=== PATIENT | female | born 1975 | race Caucasian/White ===

== ENCOUNTER → 2018-02-27 | Outpatient (REF) | payer BC ==
[2018-02-27 13:15] LABS: HEMATOCRIT 40.1 % (36.0-47.0); HEMOGLOBIN 13.5 g/dl (12.0-15.5); MEAN CORPUSCULAR HEMOGLOBIN 30.5 pg (27.0-33.0); MEAN CORPUSCULAR HGB CONC 33.7 g/dl (32.0-36.5); MEAN CORPUSCULAR VOLUME 90.5 fl (80.0-96.0); PLATELET COUNT, AUTOMATED 279 10^3/uL (150-450); RED BLOOD COUNT 4.43 10^6/uL (4.00-5.40); RED CELL DISTRIBUTION WIDTH 12.6 % (11.5-14.5); WHITE BLOOD COUNT 5.2 10^3/uL (4.0-10.0)
[2018-02-27 14:46] LABS: ALBUMIN/GLOBULIN RATIO 1.14 (1.00-1.93); ALKALINE PHOSPHATASE 35 U/L (45-117); ALT/SGPT 15 U/L (12-78); ANION GAP 8 MEQ/L (8-16); AST/SGOT 10 U/L (7-37); BILIRUBIN,TOTAL 0.6 MG/DL (0.2-1.0); BLOOD UREA NITROGEN 17 MG/DL (7-18); CALCIUM LEVEL 8.9 MG/DL (8.5-10.1); CARBON DIOXIDE LEVEL 22 MEQ/L (21-32); CHLORIDE LEVEL 110 MEQ/L (98-107); CHOLESTEROL LEVEL 302 MG/DL (<200); CHOLESTEROL RISK RATIO 4.253 (<5); CREATININE FOR GFR 0.69 MG/DL (0.55-1.30); FREE T4 0.97 NG/DL (0.76-1.46); GLOMERULAR FILTRATION RATE > 60.0 (>58); GLUCOSE, FASTING 67 MG/DL (70-100); HDL CHOLESTEROL 71 MG/DL (>40); NON-HDL-C 231 MG/DL; POTASSIUM SERUM 4.4 MEQ/L (3.5-5.1); SODIUM LEVEL 140 MEQ/L (136-145); TOTAL PROTEIN 7.5 GM/DL (6.4-8.2); TRIGLYCERIDES LEVEL 100 MG/DL (<150)
== END ==
LOC: M LAB REF 12:55
DX: Z01.419 Encounter for gynecological examination (general) (routine) without abnormal findings (principal)
CPT/HCPCS: 84443

== ENCOUNTER → 2018-07-18 | Outpatient (REF) | payer BC ==
[2018-07-18 16:56] LABS: BASO # 0.1 10^3/uL (0.0-0.2); BASO % 0.9 % (0.0-1.0); EOS # 0.2 10^3/uL (0.0-0.50); EOS % 3.1 % (0.0-3.0); HEMATOCRIT 45.3 % (36.0-47.0); HEMOGLOBIN 14.7 g/dl (12.0-15.5); IMMATURE GRANULOCYTE % 0.5 % (0-3.0); LYMPH # 1.4 10^3/uL (1.5-4.5); LYMPH % 24.6 % (24.0-44.0); MEAN CORPUSCULAR HEMOGLOBIN 30.4 pg (27.0-33.0); MEAN CORPUSCULAR HGB CONC 32.5 g/dl (32.0-36.5); MEAN CORPUSCULAR VOLUME 93.6 fl (80.0-96.0); MONO # 0.3 10^3/uL (0.0-0.8); MONO % 5.1 % (0.0-5.0); NEUTROPHILS # 3.8 10^3/uL (1.8-7.7); NEUTROPHILS % 65.8 % (36.0-66.0); PLATELET COUNT, AUTOMATED 299 10^3/uL (150-450); RED BLOOD COUNT 4.84 10^6/uL (4.00-5.40); RED CELL DISTRIBUTION WIDTH 12.5 % (11.5-14.5); WHITE BLOOD COUNT 5.7 10^3/uL (4.0-10.0)
[2018-07-18 17:54] LABS: FREE T4 1.03 NG/DL (0.76-1.46)
[2018-07-21 00:07] LABS: EBV VIRAL CAPSID AG IgM <36.0 U/mL (0.0-35.9); Lyme Disease IgG/IgM Antibodie <0.91 ISR (0.00-0.90); Lyme Disease IgM Ab Quantitati <0.80 index (0.00-0.79)
== END ==
LOC: M LAB REF 16:27
DX: R53.83 Other fatigue (principal)
CPT/HCPCS: 84443

== ENCOUNTER → 2019-02-01 | Outpatient (REF) | payer BC ==
[2019-02-01 19:58] LABS: ALBUMIN 3.7 GM/DL (3.2-5.2); ALT/SGPT 15 U/L (12-78); BILIRUBIN,TOTAL 0.4 MG/DL (0.2-1.0); BLOOD UREA NITROGEN 12 MG/DL (7-18); CARBON DIOXIDE LEVEL 24 MEQ/L (21-32); CHLORIDE LEVEL 108 MEQ/L (98-107); FREE T4 1.21 NG/DL (0.76-1.46); GLOMERULAR FILTRATION RATE > 60.0 (>58); GLUCOSE, FASTING 100 MG/DL (70-100); POTASSIUM SERUM 4.2 MEQ/L (3.5-5.1); SODIUM LEVEL 139 MEQ/L (136-145); TOTAL PROTEIN 6.8 GM/DL (6.4-8.2)
[2019-02-01 20:06] LABS: MONO SCRN NEGATIVE (NEGATIVE)
[2019-02-01 20:08] LABS: BASO # 0.1 10^3/uL (0.0-0.2); BASO % 0.8 % (0.0-1.0); EOS # 0.2 10^3/uL (0.0-0.50); EOS % 2.3 % (0.0-3.0); HEMATOCRIT 39.7 % (36.0-47.0); HEMOGLOBIN 13.4 g/dl (12.0-15.5); LYMPH # 2.3 10^3/uL (1.5-4.5); LYMPH % 30.9 % (24.0-44.0); MEAN CORPUSCULAR HEMOGLOBIN 30.4 pg (27.0-33.0); MEAN CORPUSCULAR HGB CONC 33.8 g/dl (32.0-36.5); MONO # 0.5 10^3/uL (0.0-0.8); MONO % 6.6 % (0.0-5.0); NEUTROPHILS # 4.3 10^3/uL (1.8-7.7); NEUTROPHILS % 58.9 % (36.0-66.0); PLATELET COUNT, AUTOMATED 294 10^3/uL (150-450); RED BLOOD COUNT 4.41 10^6/uL (4.00-5.40); WHITE BLOOD COUNT 7.3 10^3/uL (4.0-10.0)
[2019-02-04 00:08] LABS: EBV VIRAL CAPSID AG IgM <36.0 U/mL (0.0-35.9)
== END ==
LOC: M LABDRWAD 19:07
PROVIDERS: ATTEND Physician Assistant
DX: R53.83 Other fatigue (principal)

== ENCOUNTER → 2019-04-27 | Outpatient (REF) | payer BC ==
[2019-04-27 17:30] LABS: HIV 1&2 SCREEN CENTAUR NEGATIVE (NEGATIVE)
[2019-05-01 00:06] LABS: HSV IgM TYPES 1&2 1.88 Ratio (0.00-0.90); HSV TYPE I IgG SPECIFIC <0.91 index (0.00-0.90); HSV TYPE II IgG SPECIFIC <0.91 index (0.00-0.90)
== END ==
LOC: M LAB REF 15:55
PROVIDERS: ATTEND Obstetrics & Gynecology
DX: Z01.419 Encounter for gynecological examination (general) (routine) without abnormal findings (principal); Z11.3 Encounter for screening for infections with a predominantly sexual mode of transmission

== ENCOUNTER → 2019-07-04 | Outpatient (REF) | payer BC ==
[2019-07-04 17:23] LABS: APPEARANCE, URINE CLEAR (CLEAR); BACTERIA, URINE AUTO 1+ (NEGATIVE); BILIRUBIN, URINE AUTO NEGATIVE (NEGATIVE); BLOOD, URINE BLOOD 1+ (NEGATIVE); COLOR, URINE YELLOW (YELLOW); GLUCOSE, URINE (UA) AUTO NEGATIVE (NEGATIVE); KETONE, URINE AUTO NEGATIVE (NEGATIVE); LEUKOCYTE ESTERASE, URINE AUTO 3+ (NEGATIVE); NITRITE, URINE AUTO NEGATIVE (NEGATIVE); PROTEIN, URINE AUTO NEGATIVE (NEGATIVE); RBC, URINE AUTO 0 /HPF (0-3); SPECIFIC GRAVITY URINE AUTO 1.008 (1.002-1.035); SQUAMOUS EPITHELIAL CELL UR AU 0 /HPF (0-6); UROBILINOGEN, URINE AUTO 0.2 mg/dL (0.0-2.0); WBC, URINE AUTO 5 /HPF (0-3)
== END ==
LOC: M SFHCSACK 16:33
PROVIDERS: ATTEND Physician Assistant
DX: R30.0 Dysuria (principal)

== ENCOUNTER → 2019-09-01 | Outpatient (CLI) | payer BC ==
[2019-09-01 17:32] LABS: BASO # 0.1 10^3/uL (0.0-0.2); BASO % 1.3 % (0.0-1.0); EOS # 0.2 10^3/uL (0.0-0.5); EOS % 4.3 % (0.0-3.0); HEMATOCRIT 39.6 % (36.0-47.0); HEMOGLOBIN 13.1 g/dl (12.0-15.5); LYMPH # 1.7 10^3/uL (1.5-5.0); LYMPH % 30.7 % (24.0-44.0); MEAN CORPUSCULAR HEMOGLOBIN 30.3 pg (27.0-33.0); MEAN CORPUSCULAR HGB CONC 33.1 g/dl (32.0-36.5); MEAN CORPUSCULAR VOLUME 91.7 fl (80.0-96.0); MONO # 0.4 10^3/uL (0.0-0.8); MONO % 6.5 % (0.0-5.0); NEUTROPHILS # 3.1 10^3/uL (1.5-8.5); NEUTROPHILS % 57.2 % (36.0-66.0); PLATELET COUNT, AUTOMATED 295 10^3/uL (150-450); RED BLOOD COUNT 4.32 10^6/uL (4.00-5.40); WHITE BLOOD COUNT 5.4 10^3/uL (4.0-10.0)
[2019-09-01 17:36] LABS: APPEARANCE, URINE CLEAR (CLEAR); BACTERIA, URINE AUTO NEGATIVE (NEGATIVE); BILIRUBIN, URINE AUTO NEGATIVE (NEGATIVE); BLOOD, URINE BLOOD 1+ (NEGATIVE); COLOR, URINE STRAW (YELLOW); GLUCOSE, URINE (UA) AUTO NEGATIVE (NEGATIVE); KETONE, URINE AUTO NEGATIVE (NEGATIVE); LEUKOCYTE ESTERASE, URINE AUTO NEGATIVE (NEGATIVE); NITRITE, URINE AUTO NEGATIVE (NEGATIVE); PROTEIN, URINE AUTO NEGATIVE (NEGATIVE); RBC, URINE AUTO 2 /HPF (0-3); SPECIFIC GRAVITY URINE AUTO 1.006 (1.002-1.035); SQUAMOUS EPITHELIAL CELL UR AU 1 /HPF (0-6); UROBILINOGEN, URINE AUTO 0.2 mg/dL (0.0-2.0); WBC, URINE AUTO 0 /HPF (0-3)
[2019-09-01 18:00] LABS: ALBUMIN 3.9 GM/DL (3.2-5.2); ALT/SGPT 15 U/L (12-78); BILIRUBIN,TOTAL 0.6 MG/DL (0.2-1.0); BLOOD UREA NITROGEN 14 MG/DL (7-18); CALCIUM LEVEL 9.1 MG/DL (8.5-10.1); CARBON DIOXIDE LEVEL 26 MEQ/L (21-32); CHLORIDE LEVEL 109 MEQ/L (98-107); CHOLESTEROL LEVEL 287 MG/DL (<200); CHOLESTEROL RISK RATIO 3.587 (<5); FREE T4 1.05 NG/DL (0.76-1.46); GLOMERULAR FILTRATION RATE > 60.0 (>58); GLUCOSE, FASTING 83 MG/DL (70-100); HDL CHOLESTEROL 80 MG/DL (>40); LDL CHOLESTEROL 192 MG/DL (<100); NON-HDL-C 207 MG/DL; POTASSIUM SERUM 4.1 MEQ/L (3.5-5.1); SODIUM LEVEL 141 MEQ/L (136-145); TOTAL PROTEIN 7.6 GM/DL (6.4-8.2); TRIGLYCERIDES LEVEL 74 MG/DL (<150)
[2019-09-03 10:52] LABS: TOTAL 25(OH) VITAMIN D 26.9 NG/ML (30.0-100.0)
== END ==
LOC: M LABDRWAD 12:47
PROVIDERS: ATTEND Physician Assistant
DX: Z13.21 Encounter for screening for nutritional disorder (principal); Z13.220 Encounter for screening for lipoid disorders; Z13.29 Encounter for screening for other suspected endocrine disorder; J30.2 Other seasonal allergic rhinitis; R30.0 Dysuria

== ENCOUNTER → 2020-04-04 | Outpatient (REF) | payer BC ==
[2020-04-04 18:22] LABS: BASO % 0.5 % (0.0-1.0); EOS # 0.1 10^3/uL (0.0-0.5); EOS % 2.3 % (0.0-3.0); HEMATOCRIT 42.2 % (36.0-47.0); HEMOGLOBIN 13.7 g/dl (12.0-15.5); LYMPH # 1.8 10^3/uL (1.5-5.0); LYMPH % 32.6 % (24.0-44.0); MEAN CORPUSCULAR HEMOGLOBIN 30.4 pg (27.0-33.0); MEAN CORPUSCULAR HGB CONC 32.5 g/dl (32.0-36.5); MEAN CORPUSCULAR VOLUME 93.6 fl (80.0-96.0); MONO # 0.4 10^3/uL (0.0-0.8); MONO % 6.8 % (0.0-5.0); NEUTROPHILS # 3.2 10^3/uL (1.5-8.5); NEUTROPHILS % 57.6 % (36.0-66.0); PLATELET COUNT, AUTOMATED 300 10^3/uL (150-450); RED BLOOD COUNT 4.51 10^6/uL (4.00-5.40); WHITE BLOOD COUNT 5.6 10^3/uL (4.0-10.0)
[2020-04-04 18:32] LABS: ALT/SGPT 19 U/L (12-78); BILIRUBIN,TOTAL 0.5 MG/DL (0.2-1.0); BLOOD UREA NITROGEN 15 MG/DL (7-18); CARBON DIOXIDE LEVEL 23 MEQ/L (21-32); CHLORIDE LEVEL 108 MEQ/L (98-107); CHOLESTEROL LEVEL 287 MG/DL (<200); CHOLESTEROL RISK RATIO 4.948 (<5); CREATININE FOR GFR 0.72 MG/DL (0.55-1.30); GLOMERULAR FILTRATION RATE > 60.0 (>58); GLUCOSE, FASTING 83 MG/DL (70-100); HDL CHOLESTEROL 58 MG/DL (>40); LDL CHOLESTEROL 211 MG/DL (<100); NON-HDL-C 229 MG/DL; POTASSIUM SERUM 4.3 MEQ/L (3.5-5.1); SODIUM LEVEL 137 MEQ/L (136-145); TOTAL PROTEIN 7.3 GM/DL (6.4-8.2); TRIGLYCERIDES LEVEL 88 MG/DL (<150)
[2020-04-04 18:34] LABS: TOTAL 25(OH) VITAMIN D 29.2 NG/ML (30.0-100.0)
== END ==
LOC: M SFHCADAM 11:50
PROVIDERS: ATTEND Family Medicine
DX: K59.00 Constipation, unspecified (principal); E78.2 Mixed hyperlipidemia; E55.9 Vitamin D deficiency, unspecified

== ENCOUNTER → 2020-08-25 | Outpatient (REF) | payer BC | LOC: M SFHCADAM 15:24 | PROVIDERS: ATTEND Family Medicine | DX: M53.3 Sacrococcygeal disorders, not elsewhere classified (principal) ==

== ENCOUNTER → 2020-08-25 | Outpatient (CLI) | payer BC ==
--- NOTE | 2020-08-25 15:52 | REP ---
INDICATION: SACROILIAC DYSFUNCTION SACROILIAC DYSFUNCTION. COMPARISON: None. FINDINGS: No acute fracture or destructive osseous lesion. IMPRESSION: Within normal limits <Electronically signed by Gaurang Cullen > 08/25/20 [id number]
--- NOTE | 2020-08-25 15:54 | REP ---
INDICATION: SACROILIAC DYSFUNCTION TECHNIQUE: Multiple views of the lumbosacral spine. FINDINGS: Multiple views of the lumbosacral spine show no acute fracture, dislocation, or subluxation. The intervertebral disc spaces are symmetric and well maintained. There is no spondylolysis or spondylolisthesis. The pedicles are intact bilaterally and there is no destructive osseous lesion. Vertebral body height and alignment is within normal limits. IMPRESSION: Essentially unremarkable lumbosacral spine series. <Electronically signed by Gaurang Cullen > 08/25/20 [id number]
== END ==
LOC: M ADAMS 15:29
PROVIDERS: ATTEND Family Medicine
DX: M53.3 Sacrococcygeal disorders, not elsewhere classified (principal)

== ENCOUNTER → 2020-09-04 | Outpatient (CLI) | payer BC ==
--- NOTE | 2020-09-04 20:10 | REP ---
INDICATION: N92.1 EXCESSIVE AND FREQUENT MENSES COMPARISON: None. TECHNIQUE: Transabdominal pelvic ultrasound followed by transvaginal examination for better evaluation of the endometrium and adnexa with color Doppler evaluation of the ovaries. FINDINGS: Bladder is unremarkable and measures 9.5 x 8.4 x 5.2 cm. Normal anteverted uterus measures 7.4 x 3.6 x 4.8 cm. The endometrial complex measures 12 mm thickness. Few small nabothian cysts are appreciated in the lower uterine segment. Bilateral ovaries are normal in vascularity without evidence for torsion. Right ovary measures 0.4 x 2.5 x 2.7 cm and includes 3.8 cm simple cyst; R I = 0.55. Left ovary measures 1.8 x 0.9 x 2.1 cm with a 1.7 x 0.8 x 0.7 cm simple paraovarian cyst; R I = 0.60. No pelvic fluid or adnexal mass lesion IMPRESSION: 1. Few small nabothian cysts and mildly thickened endometrial complex without further uterine abnormalities noted. 2. Ovaries with bilateral cysts as described above. No torsion. Consider re-evaluation in 4-6 weeks if patient remains symptomatic. <Electronically signed by Pawel Palafox > 09/04/202006
== END ==
LOC: M WHC 15:57
PROVIDERS: ATTEND Obstetrics & Gynecology
DX: N92.1 Excessive and frequent menstruation with irregular cycle (principal); N88.8 Other specified noninflammatory disorders of cervix uteri; N83.201 Unspecified ovarian cyst, right side; N83.202 Unspecified ovarian cyst, left side

== ENCOUNTER → 2020-12-07 | Outpatient (CLI) | payer BC | LOC: M LABSMTC 10:27 | PROVIDERS: ATTEND Anesthesiology | DX: Z01.812 Encounter for preprocedural laboratory examination (principal); Z20.822 Contact with and (suspected) exposure to COVID-19 ==

== ENCOUNTER 2020-12-12 07:03 | Day surgery (SDC) | payer BC ==
[~2020-12-12] VITALS: Ht 162.6 cm; Wt 58.5 kg
[~2020-12-12 07:03] MED LIST: LR 1,000 ML IV ONE; LR 1,000 ML IV SCH
--- OUTSIDE RECORDS SUMMARY | 2020-12-12 07:08 | CCD ---
Author Author [employer] [facility] Organization [facility] [facility] [facility] Address Unknown Phone Unavailable Care Team Providers Care Bi Data Modeler Name Role Phone Keven Govea Unavailable PROBLEMS Type Condition ICD9-CM Code BNN18-RG Code Onset Dates Condition S tatus SNOMED Code Notes Problem Familial hyperlipidemia, high LDL E78.49 Active 93977653 Problem Chronic constipation K59.09 Active 273793981 Problem Seasonal allergies J30.2 Active 369327960 Problem Constipation, unspecified constipation type K59.00 Active 88108079 Problem Vitamin D deficiency E55.9 Active 11245771 ALLERGIES Allergen (clinical drug ingredient) Drug/Non Drug Allergy do cumented on EMR Reaction Allergy Type Onset Date Status Seasonale Sneezing, congestion Drug Allergy Ac tive Sulfa (for allergy use only) Rash Drug Allergy Active ENCOUNTERS from 1975 to 2020-09-15 Encounter Location Date Provider Diagnosis [facility] [address] [place] [address] Sep, Johnie Govea IMMUNIZATIONS No Information SOCIAL HISTORY Tobacco Use: Social History Observation Description Date Details (start date - stop date) Never Smoker Sex Assigned At : Social History Observation Description Sex Assigned At Unknown Language: Question Answer Notes Languages spoken: Swedish Judaism: Question Answer Notes Judaism 08 Mormon Sexual Hx: Question Answer Notes Had sex in the last 12 months (vaginal, oral, or anal)? No LMP: 06/2019 Have you ever had an STD? Yes Herpes? Yes Alcohol Screening: Question Answer Notes Did you have a drink containing alcohol in the past year? Ye s Points 2 Interpretation Negative How often did you have six or more drinks on one occas ion in the past year? Never (0 points) How many drinks did you have on a typica l day when you were drinking in the past year? 1 or 2 (0 points) How often did you have a drink containing alcohol in t he past year? Two to four times a month (2 points) Tobacco Use: Question Answer Notes Are you a: never smoker REASON FOR REFERRAL No Information VITAL SIGNS No information MEDICATIONS Medication SIG (Take, Route, Frequency, Duration) Start Date En d Date Status MiraLax 17 GM 1 packet mixed with 8 ounces of fluid Orally Once a day for 30 day(s) Active Colace 100 MG 1 capsule as needed Orally Once a day for 30 day (s) Sep, Not-Taking Flonase Allergy Relief 50 MCG/ACT 1 spray in each nost ril Nasally Once a day for 30 day(s) Jun, Active PROCEDURES No Information RESULTS No Results REASON FOR VISIT call back MEDICAL (GENERAL) HISTORY Type Description Date Medical History Seasonal Allergies Medical History hyperlipidemia LDL> 200 Medical History mild Vit D deficiency Surgical History No Surgical history information Goals Section No Information Health Concerns No Information MEDICAL EQUIPMENT No Information MENTAL STATUS No Information FUNCTIONAL STATUS No Information ASSESSMENTS No Information PLAN OF TREATMENT Next Appt Details Provider Name:Chica Acosta, 2021-05-25 10:00:00 AM, [address] [place], [place], [id number], Insurance Providers Payer Name Payer Address Payer Phone Insured Name Patient Relati onship to Insured Coverage Start Date Coverage End Date [employer] BC[employer] PPO [id number] [address] ENZO LOMBARDO self
--- OUTSIDE RECORDS SUMMARY | 2020-12-12 07:09 | CCD ---
Author Author [facility] Organization [facility] Address Unknown Phone Unavailable Care Team Providers Care Superior Court Judge Name Role Phone Dodard, Eloy DO Unavailable Unavailable Dodard, Eloy DO Unavailable Unavailable Dodard, Eloy DO Unavailable Unavailable Dodard, Eloy DO Unavailable Unavailable Dodard, Eloy DO Unavailable Unavailable Dodard, Eloy DO Unavailable Unavailable Dodard, Eloy DO Unavailable Unavailable Dodard, Eloy DO Unavailable Unavailable Dodard, Eloy DO Unavailable Unavailable Dodard, Eloy DO Unavailable Unavailable Dodard, Eloy DO Unavailable Unavailable Dodard, Eloy DO Unavailable Unavailable Dodard, Eloy DO Unavailable Unavailable Dodard, Eloy DO Unavailable Unavailable Dodard, Eloy DO Unavailable Unavailable Dodard, Eloy DO Unavailable Unavailable Dodard, Eloy DO Unavailable Unavailable Dodard, Eloy DO Unavailable Unavailable Dodard, Eloy DO Unavailable Unavailable Dodard, Eloy DO Unavailable Unavailable Dodard, Eloy DO Unavailable Unavailable Dodard, Eloy DO Unavailable Unavailable Dodard, Eloy DO Unavailable Unavailable Dodard, Eloy DO Unavailable Unavailable Dodard, Eloy DO Unavailable Unavailable Dodard, Eloy DO Unavailable Unavailable Dodard, Eloy DO Unavailable Unavailable Dodard, Eloy DO Unavailable Unavailable Dodard, Eloy DO Unavailable Unavailable Dodard, Eloy DO Unavailable Unavailable Dodard, Eloy DO Unavailable Unavailable Dodard, Eloy DO Unavailable Unavailable Dodard, Eloy DO Unavailable Unavailable Dodard, Eloy DO Unavailable Unavailable Dodard, Eloy DO Unavailable Unavailable Dodard, Eloy DO Unavailable Unavailable Dodard, Eloy DO Unavailable Unavailable Dodard, Eloy DO Unavailable Unavailable Dodard, Eloy DO Unavailable Unavailable Dodard, Eloy DO Unavailable Unavailable Dodard, Eloy DO Unavailable Unavailable Dodard, Eloy DO Unavailable Unavailable Dodard, Eloy DO Unavailable Unavailable Dodard, Eloy DO Unavailable Unavailable Re-disclosure Warning The records that you are about to access may contain information from federally-assisted alcohol or drug abuse programs. If such information is present, then the following federally mandated warning applies: This information has been disclosed to you from records protected by federal confidentiality rules (42 CFR part 2). The federal rules prohibit you from making any further disclosure of this information unless further disclosure is expressly permitted by the written consent of the person to whom it pertains or as otherwise permitted by 42 CFR part 2. A general authorization for the release of medical or other information is NOT sufficient for this purpose. The Federal rules restrict any use of the information to criminally investigate or prosecute any alcohol or drug abuse patient.The records that you are about to access may contain highly sensitive health information, the redisclosure of which is protected by Article 27-F of the [facility] Public Health law. If you continue you may have access to information: Regarding HIV / AIDS; Provided by facilities licensed or operated by the [facility] Office of Mental Health; or Provided by the [facility] Office for People With Developmental Disabilities. If such information is present, then the following [facility] mandated warning applies: This information has been disclosed to you from confidential records which are protected by state law. State law prohibits you from making any further disclosure of this information without the specific written consent of the person to whom it pertains, or as otherwise permitted by law. Any unauthorized further disclosure in violation of state law may result in a fine or fdc sentence or both. A general authorization for the release of medical or other information is NOT sufficient authorization for further disc losure. Family History Family Member Name Family Member Gender Family Member Status Date o f Status Description Data Source(s) Unknown Unknown Problem [facility] ([facility]) Encounters Encounter Providers Location Date Indications Data Source(s ) Unknown [address] [facility] [address] 09/11/2020 12:00:00 AM EST eCW1 ([facility]) [place] [address] [facility] [address] 08/21/2020 12:00:00 AM EDT eCW1 ([facility]) [place] [address] [facility] [address] 05/22/2020 12:00:00 AM EDT eCW1 ([facility]) [facility] [address] [place] [address] 04/16/2020 12:00:00 AM EDT eCW1 ([facility]) [place]patient [address] [facility] [address] 04/11/2020 12:00:00 AM EDT eCW1 ([facility]) Outpatient Referrer: Eloy Man DO 02/11/2020 10:26:00 AM EDT [facility] Outpatient Referrer: Eloy Man DO 02/11/2020 10:26:00 AM EDT [facility] Outpatient Referrer: Eloy Man DO 02/04/2020 03:24:00 PM EDT [facility] Outpatient Referrer: Eloy Man DO 01/02/2020 03:44:00 PM EST [facility] Outpatient Referrer: Eloy Man DO 01/01/2020 10:45:00 AM EST [facility] Outpatient Referrer: Eloy Man DO 01/01/2020 10:43:00 AM EST [facility] Insurance Providers Payer name Policy type / Coverage type Policy ID Covered democrat ID Covered democrat's relationship to delgado Policy Delgado Plan Information [employer]-BS PPO [id number] SP [id number] [employer]-BS PPO 306 [id number] SP [id number] [employer] B [id number] S [id number] [place] PPO 302/307 [id number] SP [id number] BCBS/[employer] Commercial [id number] Self [id number] [id number] BCBS/[employer] Commercial [id number] Self [id number] [id number] [place] PPO 302/307 [id number] SP [id number] [employer] BCBS B [id number] S [id number] [employer] BCBS B [id number] S [id number] [place] PPO 302/307 [id number] SP [id number] [employer] [place] Commercial Self Problems, Conditions, and Diagnoses Code Display Name Description Problem Type Effective Dates Data Source(s) K59.09 [id number] Chronic constipation Problem 04/11/2020 12:0 0:00 AM EDT [facility] E78.49 [id number] Familial hyperlipidemia, high LDL Problem 04/11/2020 12:00:00 AM EDT [facility]) Results ID Date Data Source [id number] 12/07/2020 10:45:00 AM EST [facility] Name Value Range Interpretation Code Description Data Irene rce(s) Supporting Document(s) SARS coronavirus 2 RNA Not Detected [facility] This lab was ordered by [facility] and reported by [facility]. ID Date Data Source [id number] 09/05/2020 12:00:00 AM EDT [facility] Cnm Patient Name: [facility]BARDO [facility] 1975[facility] [place] [address] Date of Exam: 09/05/2020#: Fax: [phone] EXAM: MAMMO SCREENING WITH CADCLINICAL INFORMATION: Screening.Based on the personal health history and familial cancer history yourpatient supplied at the time of imaging, her lifetime risk of breast cancerestimated by the Tyrer-Cuzick model is 33.7%. However, due to the unknowngene mutation status, there are limitations to the accuracy of this riskestimate. Similarly, if anything changes in the personal and/or familyhistory this percentage could increase or decrease. Currently, the[facility] and [place] [employer] Society recommendadjunctive breast MRI screening starting at age 30 for women with a> 20-25% lifetime risk of developing breast cancer.The patient has previously received genetic testing.Digital screening (2D) mammography was performed bilaterally in the CC andMLO projections. Additionally, breast tomosynthesis (3D mammography) wasperformed bilaterally in the CC and MLO projections. Today's exam wascompared to the prior exam(s).By history, the patient has no complaints of a palpable breast abnormalityor other significant breast complaints.The patient states last clinical breast exam was one year ago.The breasts are unchanged in size and shape. Once again, denseheterogeneous fibroglandular elements are seen bilaterally in a stableappearing pattern but to such a degree that the sensitivity of themammogram in detecting cancer is decreased. There are no tena-soft tissuedensities or spiculated masses. There is no internal architecturaldistortion. There are no suspicious tena-calcific clusters. Skinthickening or nipple retraction is not present. Benign calcifications areagain seen bilaterally.The Volpara volumetric breast density category is D, the breasts areextremely dense which lowers the sensitivity of mammography.IMPRESSION:BI-RADS Category 2 - Benign Finding(s). Stable ma mmogram. There is noevidence of malignant alteration of the breasts. Followup examinationrecommended in one year.This mammogram was read with the assistance of Amy DENIS, an FDAapproved computer aided detection system for mammography.Negative x-ray reports should not delay surgical consultation if a dominantor clinically suspicious mass is present.Not all breast cancers can be identified by mammography. Therefore, werecommend that you continue to perform regular breast self-examination andphysical examination and then promptly contact your physician of anyconcerns or changes.Adenosis and dense breasts may obscure an underlying neoplasm.REJI Swift/Chi you for referring ENZO LOMBARDO to our office. Electronically Signed - GLO YEH DO 09/08/20 15:11 Name Value Range Interpretation Code Description Data Irene rce(s) Supporting Document(s) ID Date Data Source [id number] 02/11/2020 12:00:00 AM EDT [facility] Patient Name: MONIE LOMBARDO [facility] Date of : 1975[place] [address] Date of Exam: 02/11/2020#: Fax: [phone] 2 7mEXAM: MRI BREASTS (BILATERAL) WITHOUT OR WITH CONTRASTHISTORY: Positive family history of breast carcinoma.COMPARISON: Breast MRI study from 09/26/2018. Comparison mammography05/31/2019.TECHNIQUE:3T MRI imaging was performed. A dedicated breast coil was utilized.Coronal STIR images including the chest wall and axilla are obtained.Axial STIR images are obtained. VISTA 3D T1 axial images are obtained.Dynamic pre and post Gadolinium injected 3D Thrive T1 fat sat images areobtained in the axial plane and high-resolution T1 eThrive sagittal 3D postGadolinium enhanced images are obtained bilaterally. Subtraction andmaximum intensity projection images are generated. Motion correctionimages are reviewed. Also acquired are pre-Gadolinium enhanced T2 weightedVISTA SENSE images. Coronal, sagittal and axial post Gadolinium 3Dmultiplanar reformatted images are also generated. The Gadolinium enhancedimaging is interpreted with the aid of MediaPassD, an FDA approved ComputerAided Detection (CAD) software program, and the examination is interpretedon a dedicated Breast MRI workstation. The Gadolinium dose is 15 ml ofintravenous ProHance.FINDINGS:There is no evidence of axillary lymphadenopathy on either side. U6waltdcal scans demonstrate two small subcentimeter cysts in the left breastcentrally. The largest of these is 9 mm in greatest diameter. Theseappear somewhat smaller but otherwise unchanged from the 2018 study. Highresolution pre and post contrast T1 and T2 weighted scans show nosuspicious morphologic abnormality in either breast. The breast parenchymapattern is one of heavy fibroglandular tissue elements bilaterally andsymmetrically correspo nding with the dense breast tissue seenmammographically. There is a mild pattern of background parenchymalenhancement. Dynamically acquired sequential post contrast images show nosuspicious focus of enhancement and/or washout in either breast suspiciousfor malignancy. Subtraction images show no additional abnormality.IMPRESSION:BI-RADS Category 2 - Benign Finding(s). Repeat screening breast MRIscanning recommended in one year.Accredited by the [place] [employer] in Breast MRI.APOLONIA Del Valle/Chi you for referring ENZO LOMBARDO to our office.Electronically Signed - CYNTHIA SCHUMACHER MD 02/13/20 9:01 Name Value Range Interpretation Code Description Data Irene rce(s) Supporting Document(s) Procedure Social History Code Duration Value Status Description Data Source(s ) Smoking 08/21/2020 12:00:00 AM EDT Never Smoker completed Never S moker [facility] Smoking 08/21/2020 12:00:00 AM EDT Never Smoker completed Never S moker [facility] ([facility]) Smoking 05/22/2020 12:00:00 AM EDT Never Smoker completed Never S moker [facility]CW[facility] ([facility]) Smoking 04/11/2020 12:00:00 AM EDT Never Smoker completed Never S moker [facility]CW[facility] ([facility]) Vital Signs ID Date Data Source UNK Name Value Range Interpretation Code Description Data Source(s) Diastolic blood pressure 60 mm[Hg] 60 mm[Hg] [facility] Systolic blood pressure 110 mm[Hg] 110 mm[Hg] e CW1 ([facility]) Body temperature 97.9 [degF] 97.9 [degF] [facility]CW[facility] ( [facility]) Respiratory rate 18 /min 18 /min eCW1 ([facility]) Heart rate 60 /min 60 /min [facility] Body mass index (BMI) [Ratio] 21.45 kg/m2 21.45 kg/m2 [facility]CW[facility] ([facility]) Body height 64 [in_i] 64 [in_i] eCW1 ([facility]) Body weight 125 [lb_av] 125 [lb_av] eCW1 ([facility]) Diastolic blood pressure 68 mm[Hg] 68 mm[Hg] [facility]CW[facility]) Systolic blood pressure 112 mm[Hg] 112 mm[Hg] e CW1 [facility]) Body mass index (BMI) [Ratio] 21.04 kg/m2 21.04 kg/m2 eCW1 ([facility]) Body height 64 [in_i] 64 [in_i] eCW1 ([facility]) Body weight 122.6 [lb_av] 122.6 [lb_av] eCW1 ([facility]) Diastolic blood pressure 66 mm[Hg] 66 mm[Hg] eCW[facility] Systolic blood pressure 110 mm[Hg] 110 mm[Hg] e CW1 [facility] Body temperature 96.6 [degF] 96.6 [degF] [facility]CW[facility] ( [facility] Respiratory rate 18 /min 18 /min eCW1 ([facility]) Heart rate 69 /min 69 /min eCW1 [facility] Body mass index (BMI) [Ratio] 21.63 kg/m2 21.63 kg/m2 [facility]CW[facility] Body height 64 [in_i] 64 [in_i] eCW1 ([facility]) Body weight 126 [lb_av] 126 [lb_av] eCW1 ([facility])
[2020-12-12 07:41] LABS: HEMATOCRIT 37.2 % (36.0-47.0); HEMOGLOBIN 11.9 g/dl (12.0-15.5); MEAN CORPUSCULAR HEMOGLOBIN 30.4 pg (27.0-33.0); MEAN CORPUSCULAR VOLUME 94.9 fl (80.0-96.0); PLATELET COUNT, AUTOMATED 257 10^3/uL (150-450); RED BLOOD COUNT 3.92 10^6/uL (4.00-5.40); WHITE BLOOD COUNT 5.7 10^3/uL (4.0-10.0)
[2020-12-12] MEDS ORDERED: dexameTHASONE 4 MG/ML 1ML VIAL (J1100 PER 1MG) As Ordered ONE (07:46)
[2020-12-12] MEDS ORDERED: ONDANSETRON 4MG/2ML VIAL As Ordered ONE (07:46)
[2020-12-12] MEDS ORDERED: propofoL 200 MG/20 ML VIAL As Ordered ONE (07:46)
[2020-12-12] MEDS ORDERED: LIDOCAINE 2% 100MG/5ML SDV (FOR ANES.) As Ordered ONE (07:46)
[2020-12-12] MEDS ORDERED: KETOROLAC 60MG 2ML VIAL As Ordered ONE (07:46)
[2020-12-12] MEDS ORDERED: ACETAMINOPHEN 1000MG 100ML IV BTL (OFIRMEV) (J0131 PER 10MG) As Ordered ONE (07:46)
[2020-12-12] MEDS ORDERED: fentaNYL 100 MCG/2 ML INJECTION (J3010) As Ordered ONE (07:50)
[2020-12-12] MEDS ORDERED: MIDAZOLAM INJ 2MG/2ML VIAL (J2250 PER 1MG) As Ordered ONE (07:50)
[2020-12-12] MEDS ORDERED: ePHEDrine SULFATE 25 MG/5 ML(5MG/ML) SYRINGE As Ordered ONE (08:51)
[2020-12-12] MEDS ORDERED: fentaNYL 100 MCG/2 ML INJECTION (J3010) IV PRN (09:30)
[2020-12-12] MEDS ORDERED: PERCOCET 5MG/325MG TAB PO PRN ×2 (09:30)
[2020-12-12] MEDS ORDERED: LR 1,000 ML IV SCH (09:30)
[2020-12-12] MEDS ORDERED: ONDANSETRON 4MG/2ML VIAL IV PRN (09:30)
[2020-12-12 11:10] VITALS: BP 125/68
[2020-12-12] MEDS ORDERED: IBUPROFEN 800 MG TAB PO SCH (12:00)
--- NOTE | 2020-12-12 12:40 | RO ---
OPERATIVE NOTE DATE OF OPERATION: 12/12/2020 PREOPERATIVE DIAGNOSIS: Excessive menstruation. POSTOPERATIVE DIAGNOSES: 1. Excessive menstruation. 2. Fluffy endometrium; cannot rule out endometrial hyperplasia. PROCEDURES: 1. Dilation and curettage (D&C). 2. Hysteroscopy. SURGEON: Eloy Man D.O. RADIOACTIVITY TECHNICIAN: None. ANESTHESIA: General. COMPLICATIONS: None. ESTIMATED BLOOD LOSS: Less than 20 mL. SPECIMENS SENT TO LAB: Endometrial curettings. FINDINGS: Normal appearing endometrial cavity with fluffy endometrium; cannot rule out endometrial hyperplasia or cancer. INDICATIONS FOR PROCEDURE: Genesis is a 45-year-old female with an extensive history of abnormal uterine bleeding. After counseling in the office, the decision was made to proceed with a D&C and hysteroscopy. DESCRIPTION OF PROCEDURE: After obtaining informed consent, the patient was taken to the operating room where general anesthetic was found to be adequate. She was then prepped and draped in the usual sterile fashion in the dorsolithotomy position. At this point, a straight catheter bladder was performed for approximately 200 mL of clear urine. We then placed a weighted speculum in the posterior fornix of the vagina. Using a Rea retractor, the anterior lip of the cervix was then grasped with single-tooth tenaculum. The uterus was sound to approximately 8 cm in size. The cervix was then serially dilated. The hysteroscope was inserted with the above noted findings. At this point, the hysteroscope was removed and sharp curettage of the endometrial lining was done until a gritty texture was felt. The endometrial curettings were sent to pathology for final diagnosis. Estimated blood loss less than 20 mL. The patient tolerated the procedure well. She was then transferred to the recovery room in stable condition.
== END 2020-12-12 11:20 | disposition home or self-care (01) ==
LOC: M SDC 07:03
PROVIDERS: ATTEND Obstetrics & Gynecology
DX: N93.9 Abnormal uterine and vaginal bleeding, unspecified (principal); Z88.2 Allergy status to sulfonamides
CPT/HCPCS: 36415; 58558; 81025; 85027; 86850; 86900; 86901; 88305; J0131; J1100; J1885; J2250; J2405; J3010

== ENCOUNTER → 2021-03-26 | Outpatient (REF) | payer BC ==
[2021-03-26 13:00] LABS: HEMATOCRIT 42.2 % (36.0-47.0); HEMOGLOBIN 13.6 g/dl (12.0-15.5); MEAN CORPUSCULAR HEMOGLOBIN 30.2 pg (27.0-33.0); MEAN CORPUSCULAR HGB CONC 32.2 g/dl (32.0-36.5); MEAN CORPUSCULAR VOLUME 93.8 fl (80.0-96.0); PLATELET COUNT, AUTOMATED 258 10^3/uL (150-450); WHITE BLOOD COUNT 6.9 10^3/uL (4.0-10.0)
[2021-03-26 13:47] LABS: ALBUMIN 3.9 GM/DL (3.2-5.2); ALT/SGPT 13 U/L (12-78); BILIRUBIN,TOTAL 0.7 MG/DL (0.2-1.0); BLOOD UREA NITROGEN 13 MG/DL (7-18); CARBON DIOXIDE LEVEL 23 MEQ/L (21-32); CHLORIDE LEVEL 108 MEQ/L (98-107); CHOLESTEROL LEVEL 247 MG/DL (<200); CHOLESTEROL RISK RATIO 3.383 (<5); CREATININE FOR GFR 0.63 MG/DL (0.55-1.30); FOLATE 16.8 NG/ML (>5.4); FREE T4 0.89 NG/DL (0.76-1.46); GLOMERULAR FILTRATION RATE > 60.0 (>58); GLUCOSE, FASTING 75 MG/DL (70-100); HDL CHOLESTEROL 73 MG/DL (>40); LDL CHOLESTEROL 154 MG/DL (<100); NON-HDL-C 174 MG/DL; POTASSIUM SERUM 4.2 MEQ/L (3.5-5.1); SODIUM LEVEL 139 MEQ/L (136-145); TOTAL PROTEIN 7.3 GM/DL (6.4-8.2); TRIGLYCERIDES LEVEL 102 MG/DL (<150); VITAMIN B12 LEVEL 610 PG/ML (247-911)
[2021-03-27 16:08] LABS: EBV VIRAL CAPSID AG IgM <36.0 U/mL (0.0-35.9)
== END ==
LOC: M SFHCADAM 09:00
PROVIDERS: ATTEND Family Medicine
DX: E78.49 Other hyperlipidemia (principal); R53.83 Other fatigue

== ENCOUNTER → 2021-04-15 | Outpatient (CLI) | payer BC ==
--- NOTE | 2021-04-15 11:14 | REPVR ---
PROCEDURE INFORMATION: Exam: CT Lumbar Spine Without Contrast Exam date and time: 04/15/2021 10:31 AM Age: 45 years old Clinical indication: Other: Sacral ilac dysfunction TECHNIQUE: Imaging protocol: Computed tomography images of the lumbar spine without contrast. Radiation optimization: All CT scans at this facility use at least one of these dose optimization techniques: automated exposure control; mA and/or kV adjustment per patient size (includes targeted exams where dose is matched to clinical indication); or iterative reconstruction. COMPARISON: DX SPINE LUMBOSACRAL PARTIAL 08/25/2020 3:14 PM FINDINGS: Vertebrae: No intratesticular mass. Intratesticular blood flow demonstrated. Discs/Spinal canal/Neural foramina: No acute findings. Soft tissues: Unremarkable appearance of the paraspinous soft tissues. IMPRESSION: Unremarkable CT evaluation of the lumbar spine. Electronically signed by: Niranjan Qureshi On 04/15/2021 11:14:28 AM
== END ==
LOC: M RAD 10:19
PROVIDERS: ATTEND Family Medicine
DX: M53.3 Sacrococcygeal disorders, not elsewhere classified (principal)

== ENCOUNTER → 2021-07-02 | Outpatient (REF) | payer BC | LOC: M SFHCADAM 09:41 | PROVIDERS: ATTEND Family Medicine | DX: R05 Cough (principal) ==

== ENCOUNTER → 2021-09-09 | Outpatient (REF) | payer BC ==
[2021-09-09 13:24] LABS: HEMATOCRIT 41.2 % (36.0-47.0); HEMOGLOBIN 13.2 g/dl (12.0-15.5); MEAN CORPUSCULAR HEMOGLOBIN 29.7 pg (27.0-33.0); MEAN CORPUSCULAR VOLUME 92.8 fl (80.0-96.0); PLATELET COUNT, AUTOMATED 293 10^3/uL (150-450); RED BLOOD COUNT 4.44 10^6/uL (4.00-5.40); WHITE BLOOD COUNT 6.2 10^3/uL (4.0-10.0)
[2021-09-09 14:10] LABS: ALBUMIN 3.5 GM/DL (3.2-5.2); ALT/SGPT 16 U/L (12-78); BILIRUBIN,TOTAL 0.6 MG/DL (0.2-1.0); BLOOD UREA NITROGEN 10 MG/DL (7-18); CALCIUM LEVEL 9.1 MG/DL (8.5-10.1); CARBON DIOXIDE LEVEL 25 MEQ/L (21-32); CHLORIDE LEVEL 108 MEQ/L (98-107); CHOLESTEROL LEVEL 260 MG/DL (<200); CHOLESTEROL RISK RATIO 3.768 (<5); CREATININE FOR GFR 0.82 MG/DL (0.55-1.30); FOLATE 13.4 NG/ML (>5.4); FREE T4 1.12 NG/DL (0.76-1.46); GLOMERULAR FILTRATION RATE > 60.0 (>58); GLUCOSE, FASTING 81 MG/DL (70-100); HDL CHOLESTEROL 69 MG/DL (>40); LDL CHOLESTEROL 173 MG/DL (<100); NON-HDL-C 191 MG/DL; POTASSIUM SERUM 4.2 MEQ/L (3.5-5.1); SODIUM LEVEL 138 MEQ/L (136-145); TOTAL PROTEIN 7.1 GM/DL (6.4-8.2); TRIGLYCERIDES LEVEL 89 MG/DL (<150); VITAMIN B12 LEVEL 419 PG/ML (247-911)
== END ==
LOC: M SFHCADAM 11:04
PROVIDERS: ATTEND Family Medicine
DX: R06.09 Other forms of dyspnea (principal); U09.9 Post COVID-19 condition, unspecified; R53.83 Other fatigue; B94.8 Sequelae of other specified infectious and parasitic diseases; E78.49 Other hyperlipidemia

== ENCOUNTER → 2021-09-09 | Outpatient (CLI) | payer BC ==
--- NOTE | 2021-09-09 11:59 | REP ---
INDICATION: POST COVID19 CONDITION, SEQUELAE OF OTHER INFECTIOUS/PARASIT. COMPARISON: 02/25/2014 TECHNIQUE: PA and lateral FINDINGS: The superior mediastinal structures are midline. The cardiac silhouette is unremarkable in size, shape, and position. The diaphragmatic surfaces of the lungs are regular, and the costophrenic angles are clear. The pulmonary de león are clear. The imaged osseous structures are intact. IMPRESSION: There is no acute cardiopulmonary disease. <Electronically signed by Gaurang Cullen > 09/09/21 [id number]
== END ==
LOC: M ADAMS 11:15
PROVIDERS: ATTEND Family Medicine
DX: R06.09 Other forms of dyspnea (principal); U09.9 Post COVID-19 condition, unspecified; R53.83 Other fatigue; B94.8 Sequelae of other specified infectious and parasitic diseases

== ENCOUNTER → 2021-09-18 | Outpatient (CLI) | payer BC ==
--- NOTE | 2021-09-18 11:08 | REPMRS ---
Patient History The patient states she had a clinical breast exam in March 2021. Patient is nulliparous. Family history of breast cancer at age 73 in mother, breast cancer at age 45 in maternal grandmother, endometrial cancer at age 50 in sister, pancreatic cancer at age 76 in father. Taking hormonal contraceptives for 6 months. Tomosynthesis is performed. Volpara breast density is d. Patient states no breast complaints today. Patient has signed MRS History Sheet. Digital Woman Screen Mammo: September 18, 2021 - Exam #: [id number] Bilateral MLO, CC, and XCCL view(s) were taken. Technologist: Eulalia Samano, Technologist Prior study comparison: September 05, 2020, bilateral digital mammo screening bilat, performed at [facility]. May 31, 2019, bilateral digital mammo screening bilat, performed at [facility]. FINDINGS: The breast tissue is extremely dense which could obscure a lesion on mammography. There has been no change in the appearance of the mammogram from the prior studies. There is a moderate amount of residual fibroglandular tissue which is fairly symmetric. There is no interval development of dominant mass, areas of architectural distortion, or clustered microcalcification typical of malignancy. Assessment: BI-RADS/ACR category 1 mammogram. Negative Mammogram. Recommendation Routine screening mammogram in 1 year (for women over age 40). This mammogram was interpreted with the aid of an FDA-approved computer-aided dectection system. The Lifetime Breast Cancer Risk is estimated at 29.1%. Yearly supplemental screening MRI of the breasts is recommended for patients with an elevated lifetime risk of breast cancer of 20% or greater, in addition to annual screening mammography, staggered every 6 months. Electronically Signed By: Bal Suarez MD 09/18/21 [id number]
== END ==
LOC: M WHC 09:33
PROVIDERS: ATTEND Advanced Practice Midwife
DX: Z12.31 Encounter for screening mammogram for malignant neoplasm of breast (principal); Z80.3 Family history of malignant neoplasm of breast

== ENCOUNTER → 2021-09-18 | Outpatient (REF) | payer BC | LOC: M SFHCWAGY 17:12 | PROVIDERS: ATTEND Advanced Practice Midwife | DX: Z12.4 Encounter for screening for malignant neoplasm of cervix (principal) | CPT/HCPCS: 87624; G0123 ==

== ENCOUNTER → 2021-09-18 | Outpatient (REF) | payer BC | LOC: M PLALAB 14:28 | PROVIDERS: ATTEND Advanced Practice Midwife | DX: Z53.20 Procedure and treatment not carried out because of patient's decision for unspecified reasons (principal) ==

== ENCOUNTER → 2022-04-13 | Outpatient (CLI) | payer BC ==
[~2022-04-13] MED LIST changes: -LR 1,000 ML IV ONE; -LR 1,000 ML IV SCH; +PROHANCE 279.3MG/ML 15ML VIAL As Ordered ONE
== END ==
LOC: M RAD 16:02
PROVIDERS: ATTEND Advanced Practice Midwife
DX: Z12.31 Encounter for screening mammogram for malignant neoplasm of breast (principal); Z91.89 Other specified personal risk factors, not elsewhere classified
CPT/HCPCS: A9576; C8908

== ENCOUNTER → 2023-03-28 | Outpatient (REF) | payer OTHER ==
[2023-03-28 16:19] LABS: HEMOGLOBIN 12.9 g/dl (12.0-15.5); MEAN CORPUSCULAR HEMOGLOBIN 30.1 pg (27.0-33.0); MEAN CORPUSCULAR HGB CONC 32.3 g/dl (32.0-36.5); MEAN CORPUSCULAR VOLUME 93.2 fl (80.0-96.0); PLATELET COUNT, AUTOMATED 284 10^3/uL (150-450); RED BLOOD COUNT 4.29 10^6/uL (4.00-5.40)
[2023-03-28 16:41] LABS: ALBUMIN 3.4 G/DL (3.2-5.2); ALKALINE PHOSPHATASE 40 U/L (46-116); ALT/SGPT 13 U/L (7.0-40); AST/SGOT 16 U/L (<34); BILIRUBIN,TOTAL 0.5 MG/DL (0.3-1.2); BLOOD UREA NITROGEN 12 MG/DL (9-23); CALCIUM LEVEL 9.4 MG/DL (8.5-10.1); CARBON DIOXIDE LEVEL 26 MMOL/L (20-31); CHLORIDE LEVEL 107 MMOL/L (98-107); CHOLESTEROL LEVEL 232 MG/DL (<200); CHOLESTEROL RISK RATIO 3.21 (<5); CREATININE FOR GFR 0.71 MG/DL (0.55-1.30); GLOMERULAR FILTRATION RATE > 60.0 (>58); GLUCOSE, FASTING 82 MG/DL (60-100); HDL CHOLESTEROL 72.2 MG/DL (>40); LDL CHOLESTEROL 139.4 MG/DL (<100); NON-HDL-C 159.8 MG/DL; POTASSIUM SERUM 4.2 MMOL/L (3.5-5.1); SODIUM LEVEL 139 MMOL/L (136-145); TOTAL PROTEIN 6.4 G/DL (5.7-8.2); TRIGLYCERIDES LEVEL 102 MG/DL (<150)
== END ==
LOC: M SFHCADAM 15:11
PROVIDERS: ATTEND Family Medicine
DX: E78.49 Other hyperlipidemia (principal); U09.9 Post COVID-19 condition, unspecified

== ENCOUNTER → 2023-06-01 | Outpatient (REF) | payer OTHER | LOC: M SFHCDERM 12:09 | PROVIDERS: ATTEND Physician Assistant | DX: D49.2 Neoplasm of unspecified behavior of bone, soft tissue, and skin (principal) ==

== ENCOUNTER → 2023-06-22 | Outpatient (REF) | payer OTHER ==
[2023-06-22 13:13] LABS: BASO # 0.1 10^3/uL (0.0-0.2); EOS # 0.3 10^3/uL (0.0-0.5); EOS % 4.6 % (0.0-3.0); HEMATOCRIT 38.9 % (36.0-47.0); HEMOGLOBIN 12.5 g/dl (12.0-15.5); LYMPH % 16.7 % (24.0-44.0); MEAN CORPUSCULAR HEMOGLOBIN 29.4 pg (27.0-33.0); MEAN CORPUSCULAR HGB CONC 32.1 g/dl (32.0-36.5); MEAN CORPUSCULAR VOLUME 91.5 fl (80.0-96.0); MONO # 0.4 10^3/uL (0.0-0.8); MONO % 6.6 % (2.0-8.0); NEUTROPHILS # 4.4 10^3/uL (1.5-8.5); NEUTROPHILS % 70.9 % (36.0-66.0); PLATELET COUNT, AUTOMATED 391 10^3/uL (150-450); RED BLOOD COUNT 4.25 10^6/uL (4.00-5.40); WHITE BLOOD COUNT 6.2 10^3/uL (4.0-10.0)
[2023-06-22 13:33] LABS: ERYTHROCYTE SEDIMENTATION RATE 48 mm/hr (0-20)
[2023-06-22 13:39] LABS: ALBUMIN 3.1 G/DL (3.2-5.2); ALKALINE PHOSPHATASE 46 U/L (46-116); ALT/SGPT < 9 U/L (7.0-40); AST/SGOT < 8 U/L (<34); BILIRUBIN,TOTAL 0.4 MG/DL (0.3-1.2); BLOOD UREA NITROGEN 16 MG/DL (9-23); CALCIUM LEVEL 9.1 MG/DL (8.5-10.1); CARBON DIOXIDE LEVEL 23 MMOL/L (20-31); CHLORIDE LEVEL 108 MMOL/L (98-107); CREATININE FOR GFR 0.77 MG/DL (0.55-1.30); GLOMERULAR FILTRATION RATE > 60.0 (>58); GLUCOSE, FASTING 68 MG/DL (60-100); POTASSIUM SERUM 4.5 MMOL/L (3.5-5.1); SODIUM LEVEL 139 MMOL/L (136-145); TOTAL PROTEIN 6.8 G/DL (5.7-8.2)
[2023-06-23 16:11] LABS: IgG P18 AB Absent (.); IgG P23 AB Present (.); IgG P28 AB Absent (.); IgG P30 AB Absent (.); IgG P39 AB Absent (.); IgG P41 AB Present (.); IgG P45 AB Absent (.); IgG P66 AB Absent (.); IgG P93 AB Absent (.); IgM P23 AB Present (.); IgM P39 AB Absent (.); IgM P41 AB Present (.); LYME IgG WB INTERPRETATION Negative (.); LYME IgM WB INTERPRETATION Positive (.)
== END ==
LOC: M SFHCADAM 11:08
PROVIDERS: ATTEND Physician Assistant
DX: R68.84 Jaw pain (principal)

== ENCOUNTER → 2023-10-11 | Outpatient (CLI) | payer OTHER | LOC: M WHC 14:39 | PROVIDERS: ATTEND Advanced Practice Midwife | DX: R92.2 Inconclusive mammogram (principal); N60.12 Diffuse cystic mastopathy of left breast ==

== ENCOUNTER → 2024-03-09 | Outpatient (CLI) | payer OTHER ==
[~2024-03-09] MED LIST changes: -PROHANCE 279.3MG/ML 15ML VIAL As Ordered ONE; +PROHANCE 279.3MG/ML 15ML VIAL ONE
== END ==
LOC: M PLAIMG 14:42
PROVIDERS: ATTEND Advanced Practice Midwife
DX: R92.30 Dense breasts, unspecified (principal); Z91.89 Other specified personal risk factors, not elsewhere classified
CPT/HCPCS: A9576; C8908

== ENCOUNTER → 2024-04-11 | Outpatient (REF) | payer OTHER ==
[2024-04-11 14:04] LABS: ALBUMIN 3.8 G/DL (3.2-5.2); ALKALINE PHOSPHATASE 40 U/L (46-116); ALT/SGPT 14 U/L (7.0-40); AST/SGOT 13 U/L (<34); BILIRUBIN,TOTAL 1.1 MG/DL (0.3-1.2); BLOOD UREA NITROGEN 13 MG/DL (9-23); CALCIUM LEVEL 9.6 MG/DL (8.5-10.1); CARBON DIOXIDE LEVEL 22 MMOL/L (20-31); CHLORIDE LEVEL 108 MMOL/L (98-107); CHOLESTEROL LEVEL 253 MG/DL (<200); CHOLESTEROL RISK RATIO 3.44 (<5); GLOMERULAR FILTRATION RATE > 60.0 (>58); GLUCOSE, FASTING 86 MG/DL (60-100); HDL CHOLESTEROL 73.5 MG/DL (>40); LDL CHOLESTEROL 161.3 MG/DL (<100); NON-HDL-C 179.5 MG/DL; POTASSIUM SERUM 4.2 MMOL/L (3.5-5.1); SODIUM LEVEL 140 MMOL/L (136-145); TOTAL PROTEIN 7.1 G/DL (5.7-8.2); TRIGLYCERIDES LEVEL 91 MG/DL (<150)
== END ==
LOC: M SFHCADAM 10:27
PROVIDERS: ATTEND Family Medicine
DX: E78.49 Other hyperlipidemia (principal)

== ENCOUNTER 2024-06-22 07:59 | Day surgery (SDC) | payer OTHER ==
[~2024-06-22] VITALS: Ht 162.6 cm; Wt 58.7 kg
[~2024-06-22 07:59] MED LIST changes: +ACETAMINOPHEN 1000MG 100ML IV BAG As Ordered ONE; +BIOT1CAP2 PO; +ESTA0.25 PO; +KETOROLAC 60MG 2ML VIAL As Ordered ONE; +LIDOCAINE 2% 100MG/5ML SDV (FOR ANES.) As Ordered ONE; +MIDAZOLAM INJ 2MG/2ML VIAL As Ordered ONE; +ONDANSETRON 4MG 2ML VIAL As Ordered ONE; -PROHANCE 279.3MG/ML 15ML VIAL ONE; +fentaNYL 100 MCG/2 ML INJECTION As Ordered ONE; +turkey tail PO
[2024-06-22] MEDS ORDERED: LR 1,000 ML IV SCH ×2 (08:35→11:20)
[2024-06-22 08:48] LABS: HEMATOCRIT 40.4 % (36.0-47.0); HEMOGLOBIN 13.5 g/dl (12.0-15.5); MEAN CORPUSCULAR HEMOGLOBIN 31.1 pg (27.0-33.0); MEAN CORPUSCULAR HGB CONC 33.4 g/dl (32.0-36.5); MEAN CORPUSCULAR VOLUME 93.1 fl (80.0-96.0); PLATELET COUNT, AUTOMATED 234 10^3/uL (150-450); RED BLOOD COUNT 4.34 10^6/uL (4.00-5.40); WHITE BLOOD COUNT 4.3 10^3/uL (4.0-10.0)
[2024-06-22] MEDS ORDERED: propofoL 500 MG/50 ML VIAL As Ordered ONE (09:06)
[2024-06-22] MEDS ORDERED: ONDANSETRON 4MG 2ML VIAL IV PRN (11:20)
[2024-06-22] MEDS ORDERED: oxyCODONE 5MG TAB PO PRN (11:20)
[2024-06-22] MEDS ORDERED: fentaNYL 100 MCG/2 ML INJECTION IV PRN (11:20)
[2024-06-22] MEDS ORDERED: HYDROMORPHONE HCL 0.5 MG/ 0.5 ML SYRINGE IV PRN (11:20)
[2024-06-22] MEDS ORDERED: METOCLOPRAMIDE INJ 10MG/2ML VIAL IV PRN (11:20)
[2024-06-22 13:01] VITALS: BP 129/77; TEMP 98.4; O2SAT 98
== END 2024-06-22 12:49 | disposition home or self-care (01) ==
LOC: M SDC 07:59
PROVIDERS: ATTEND Specialist
DX: N92.0 Excessive and frequent menstruation with regular cycle (principal); N85.8 Other specified noninflammatory disorders of uterus; E78.00 Pure hypercholesterolemia, unspecified; Z79.3 Long term (current) use of hormonal contraceptives; Z88.2 Allergy status to sulfonamides
CPT/HCPCS: 36415; 58563; 85027; 88305; J0131; J1100; J1885; J2250; J2405; J3010

== ENCOUNTER → 2024-08-09 | Outpatient (CLI) | payer OTHER ==
[~2024-08-09] MED LIST changes: -ACETAMINOPHEN 1000MG 100ML IV BAG As Ordered ONE; +GASTROGRAFIN SOLUTION 30ML As Ordered ONE; +ISOVUE-370 76% 100ML VIAL As Ordered ONE; -KETOROLAC 60MG 2ML VIAL As Ordered ONE; -LIDOCAINE 2% 100MG/5ML SDV (FOR ANES.) As Ordered ONE; -MIDAZOLAM INJ 2MG/2ML VIAL As Ordered ONE; -ONDANSETRON 4MG 2ML VIAL As Ordered ONE; -fentaNYL 100 MCG/2 ML INJECTION As Ordered ONE
== END ==
LOC: M RAD 08:43
PROVIDERS: ATTEND Specialist
DX: R10.9 Unspecified abdominal pain (principal)
CPT/HCPCS: 74178; Q9963; Q9967

== ENCOUNTER → 2024-10-12 | Outpatient (REF) | payer OTHER ==
[~2024-10-12] MED LIST changes: -GASTROGRAFIN SOLUTION 30ML As Ordered ONE; -ISOVUE-370 76% 100ML VIAL As Ordered ONE
[2024-10-16 13:38] LABS: HPV APTIMA Not Detected (Not Detected)
== END ==
LOC: M PLALAB 15:52
PROVIDERS: ATTEND Advanced Practice Midwife
DX: Z12.4 Encounter for screening for malignant neoplasm of cervix (principal); Z11.51 Encounter for screening for human papillomavirus (HPV)
CPT/HCPCS: 87624; G0123

== ENCOUNTER → 2024-10-12 | Outpatient (CLI) | payer OTHER | LOC: M WHC 15:30 | PROVIDERS: ATTEND Advanced Practice Midwife | DX: Z12.31 Encounter for screening mammogram for malignant neoplasm of breast (principal) ==

== ENCOUNTER → 2025-10-16 | Outpatient (CLI) | payer OTHER | LOC: M WHC 16:36 | PROVIDERS: ATTEND Advanced Practice Midwife | DX: Z12.31 Encounter for screening mammogram for malignant neoplasm of breast (principal) ==